=== PATIENT | female | born 1990 | race Caucasian/White ===

== ENCOUNTER 2019-10-30 10:37 | Inpatient (IN) | payer BC ==
[~2019-10-30] VITALS: Ht 167.6 cm; Wt 91.8 kg
[2019-10-30] MEDS ORDERED: MAGNESIUM SULF. PMX 20GM/500ML 500 ML IV SCH (12:04)
[2019-10-30] MEDS ORDERED: MAGNESIUM SULF. PMX 20GM/500ML 500 ML IV ONE ×2 (12:08→19:06)
[2019-10-30] MEDS: LACTATED RINGERS 1,000 ML IV PRN ×2 (12:19→20:30)
[2019-10-30] MEDS ORDERED: PLEASE ENTER ALLERGIES MC SCH (12:30)
[2019-10-30] MEDS ORDERED: PLEASE ENTER HEIGHT AND WEIGHT MC SCH (12:30)
[2019-10-30 12:58] LABS: BASOPHILS % (AUTO) 0 % (0-1); EOSINOPHILS # (AUTO) 0.02 x10^3/uL (0-0.4); EOSINOPHILS % (AUTO) 0 % (1-7); LYMPHOCYTES # (AUTO) 1.43 x10^3/uL (1-3.4); LYMPHOCYTES % (AUTO) 11 % (22-44); MD NO; MEAN CORPUSCULAR HEMOGLOBIN 28.8 pg (27.0-34.8); MEAN CORPUSCULAR HGB CONC 33.5 g/dL (32.4-35.8); MEAN PLATELET VOLUME 8.4 fL (7.4-10.4); MONOCYTES # (AUTO) 0.11 x10^3/uL (0.2-0.8); MONOCYTES % (AUTO) 1 % (2-9); NEUTROPHILS % (AUTO) 89 % (42-75); PLATELET COUNT 316 x10^3/uL (130-400); RED BLOOD COUNT 4.22 x10^6/uL (3.82-5.3); RED CELL DISTRIBUTION WIDTH 12.7 % (9.6-15.2)
[2019-10-30] MEDS: MAGNESIUM SULF. PMX 20GM/500ML 500 ML IV PRN ×2 (13:30→19:15)
[2019-10-30] MEDS ORDERED: MAGNESIUM SULF. PMX 20GM/500ML 500 ML IV PRN (14:00)
[2019-10-30] MEDS ORDERED: BETAMETHASONE 6 MG/ML, 5ML IM ONE (15:08)
[2019-10-30] MEDS: AZITHROMYCIN 500 MG in SODIUM CHLORIDE 0.9% 250 ML IV SCH (15:31)
[2019-10-30] MEDS ORDERED: INDOMETHACIN 50 MG CAPSULE PO SCH (16:00)
[2019-10-30] MEDS: AMPICILLIN 2 GM in SODIUM CHLORIDE 0.9% 100 ML IV SCH (18:28)
[2019-10-30 19:44] VITALS: BP 104/58
[2019-10-30] MEDS: INDOMETHACIN 50 MG CAPSULE PO SCH (21:00)
[2019-10-30] MEDS ORDERED: ONDANSETRON 2MG/ML, 2ML ONE (22:26)
[2019-10-30] MEDS ORDERED: ONDANSETRON 2MG/ML, 2ML IVPush ONE (22:30)
[2019-10-30] MEDS: MAGNESIUM SULF. PMX 20GM/500ML 500 ML IV SCH (22:54)
[2019-10-31] MEDS ORDERED: MAGNESIUM SULF. PMX 20GM/500ML 500 ML IV ONE ×3 (02:11→19:24)
[2019-10-31] MEDS: MAGNESIUM SULF. PMX 20GM/500ML 500 ML IV SCH ×3 (02:15→19:26)
[2019-10-31] MEDS: AMPICILLIN 2 GM in SODIUM CHLORIDE 0.9% 100 ML IV SCH ×4 (05:54→18:04)
[2019-10-31] MEDS ORDERED: INDOMETHACIN 25 MG CAPSULE ONE (06:02)
[2019-10-31] MEDS: INDOMETHACIN 50 MG CAPSULE PO SCH ×2 (06:10→14:00)
[2019-10-31] MEDS ORDERED: BETAMETHASONE 6 MG/ML, 5ML IM ONE (08:39)
[2019-10-31] MEDS ORDERED: PRENATAL VIT/IRON/FA 1 EACH TABLET ONE (08:39)
[2019-10-31] MEDS: PRENATAL VIT/IRON/FA 1 EACH TABLET PO SCH (08:49)
[2019-10-31] MEDS ORDERED: INDOMETHACIN 50 MG CAPSULE ONE (13:55)
[2019-10-31] MEDS: AZITHROMYCIN 500 MG in SODIUM CHLORIDE 0.9% 250 ML IV SCH (14:33)
[2019-10-31] MEDS: LACTATED RINGERS 1,000 ML IV PRN (17:29)
[2019-11-01] MEDS: AMPICILLIN 2 GM in SODIUM CHLORIDE 0.9% 100 ML IV SCH ×4 (00:05→18:17)
[2019-11-01] MEDS ORDERED: MAGNESIUM SULF. PMX 20GM/500ML 500 ML IV ONE ×2 (04:37→20:11)
[2019-11-01] MEDS: MAGNESIUM SULF. PMX 20GM/500ML 500 ML IV SCH ×2 (04:40→21:09)
[2019-11-01] MEDS: LACTATED RINGERS 1,000 ML IV PRN ×2 (06:08→20:25)
[2019-11-01] MEDS ORDERED: PRENATAL VIT/IRON/FA 1 EACH TABLET ONE (08:12)
[2019-11-01] MEDS ORDERED: DOCUSATE 100 MG CAPSULE ONE (08:13)
[2019-11-01] MEDS: DOCUSATE 100 MG CAPSULE PO SCH ×2 (08:14→21:56)
[2019-11-01] MEDS: PRENATAL VIT/IRON/FA 1 EACH TABLET PO SCH (08:14)
[2019-11-01] MEDS: LACTOBACILLUS 1GM/ PACKET PO PRN (10:12)
[2019-11-01] MEDS ORDERED: NEWBORN KIT ONE (12:27)
[2019-11-01] MEDS ORDERED: METOCLOPRAMIDE 5 MG/ML, 2ML ONE (12:27)
[2019-11-01] MEDS ORDERED: SODIUM CITRATE/CITRIC ACID 30 ML UDC ONE (12:28)
[2019-11-01] MEDS: AZITHROMYCIN 500 MG in SODIUM CHLORIDE 0.9% 250 ML IV SCH (14:21)
[2019-11-01] MEDS ORDERED: MAGNESIUM SULFATE PMX 2GM/50ML 50 ML ONE (20:11)
[2019-11-01] MEDS ORDERED: MAGNESIUM SULFATE PMX 4GM/100M 100 ML ONE (20:11)
[2019-11-01] MEDS ORDERED: MAGNESIUM SULFATE PMX 4GM/100M 100 ML IVPB ONE (20:30)
[2019-11-01] MEDS ORDERED: MAGNESIUM SULFATE PMX 2GM/50ML 50 ML IVPB ONE (20:30)
[2019-11-02] MEDS: AMPICILLIN 2 GM in SODIUM CHLORIDE 0.9% 100 ML IV SCH ×4 (00:17→18:05)
[2019-11-02] MEDS ORDERED: MAGNESIUM SULF. PMX 20GM/500ML 500 ML IV ONE (07:21)
[2019-11-02] MEDS: MAGNESIUM SULF. PMX 20GM/500ML 500 ML IV SCH (07:40)
[2019-11-02] MEDS ORDERED: DOCUSATE 100 MG CAPSULE ONE ×2 (08:07→20:58)
[2019-11-02] MEDS ORDERED: PRENATAL VIT/IRON/FA 1 EACH TABLET ONE (08:07)
[2019-11-02] MEDS: PRENATAL VIT/IRON/FA 1 EACH TABLET PO SCH (08:57)
[2019-11-02] MEDS: DOCUSATE 100 MG CAPSULE PO SCH ×2 (08:57→21:00)
[2019-11-02] MEDS: LACTATED RINGERS 1,000 ML IV PRN (09:11)
[2019-11-02] MEDS: AZITHROMYCIN 500 MG in SODIUM CHLORIDE 0.9% 250 ML IV SCH (14:20)
[2019-11-02] MEDS ORDERED: CALCIUM CARBONATE 500 MG TAB.CHEW ONE (15:14)
[2019-11-02 20:10] VITALS: BP 102/56
[2019-11-02] MEDS ORDERED: AMOXICILLIN 250 MG CAPSULE ONE (20:58)
[2019-11-02] MEDS: AMOXICILLIN 250 MG CAPSULE PO SCH (21:00)
[2019-11-03 01:00] VITALS: BP 105/51
[2019-11-03] MEDS ORDERED: AMOXICILLIN 250 MG CAPSULE ONE ×2 (05:26→21:25)
[2019-11-03] MEDS: AMOXICILLIN 250 MG CAPSULE PO SCH ×2 (06:05→21:27)
[2019-11-03 06:06] VITALS: BP 106/58
[2019-11-03 07:50] VITALS: BP 109/60
[2019-11-03] MEDS ORDERED: DOCUSATE 100 MG CAPSULE ONE (08:56)
[2019-11-03] MEDS ORDERED: PRENATAL VIT/IRON/FA 1 EACH TABLET ONE (08:56)
[2019-11-03] MEDS ORDERED: AZITHROMYCIN 500 MG TABLET ONE (08:56)
[2019-11-03] MEDS: PRENATAL VIT/IRON/FA 1 EACH TABLET PO SCH (08:58)
[2019-11-03] MEDS: AZITHROMYCIN 500 MG TABLET PO SCH (08:59)
[2019-11-03] MEDS: DOCUSATE 100 MG CAPSULE PO SCH ×2 (08:59→21:00)
[2019-11-03 21:56] VITALS: BP 112/56
[2019-11-04] MEDS ORDERED: AMOXICILLIN 250 MG CAPSULE ONE (05:49)
[2019-11-04] MEDS: SODIUM CHLORIDE FLUSH 10ML SYR IVF PRN ×2 (05:56→20:47)
[2019-11-04] MEDS: AMOXICILLIN 250 MG CAPSULE PO SCH ×4 (05:56→20:46)
[2019-11-04 06:11] LABS: BASOPHILS # (AUTO) 0.03 x10^3/uL (0-0.1); BASOPHILS % (AUTO) 0 % (0-1); EOSINOPHILS % (AUTO) 3 % (1-7); LYMPHOCYTES # (AUTO) 3.11 x10^3/uL (1-3.4); LYMPHOCYTES % (AUTO) 26 % (22-44); MD NO; MEAN CORPUSCULAR HEMOGLOBIN 29.1 pg (27.0-34.8); MEAN CORPUSCULAR HGB CONC 33.4 g/dL (32.4-35.8); MEAN CORPUSCULAR VOLUME 87.1 fL (80-100); MEAN PLATELET VOLUME 8.1 fL (7.4-10.4); MONOCYTES # (AUTO) 0.77 x10^3/uL (0.2-0.8); MONOCYTES % (AUTO) 6 % (2-9); NEUTROPHILS # (AUTO) 7.69 x10^3/uL (1.8-6.8); NEUTROPHILS % (AUTO) 65 % (42-75); PLATELET COUNT 294 x10^3/uL (130-400); RED BLOOD COUNT 3.65 x10^6/uL (3.82-5.3); RED CELL DISTRIBUTION WIDTH 12.7 % (9.6-15.2)
[2019-11-04 09:00] VITALS: BP 110/65
[2019-11-04] MEDS: DOCUSATE 100 MG CAPSULE PO SCH ×2 (09:00→20:46)
[2019-11-04] MEDS ORDERED: PRENATAL VIT/IRON/FA 1 EACH TABLET ONE (10:41)
[2019-11-04] MEDS: PRENATAL VIT/IRON/FA 1 EACH TABLET PO SCH (10:43)
[2019-11-04] MEDS: AZITHROMYCIN 500 MG TABLET PO SCH (10:44)
[2019-11-04] MEDS ORDERED: DOCUSATE 100 MG CAPSULE ONE (20:44)
[2019-11-04] MEDS: MICONAZOLE 7 VAG. CRM 2%, 45GM VG SCH (20:47)
[2019-11-04] MEDS: LACTOBACILLUS 1GM/ PACKET PO PRN (21:32)
[2019-11-05] MEDS: DOCUSATE 100 MG CAPSULE PO SCH (08:06)
[2019-11-05] MEDS ORDERED: AZITHROMYCIN 500 MG TABLET ONE (08:42)
[2019-11-05] MEDS ORDERED: AMOXICILLIN 250 MG CAPSULE ONE ×3 (08:42→20:38)
[2019-11-05] MEDS ORDERED: PRENATAL VIT/IRON/FA 1 EACH TABLET ONE (08:54)
[2019-11-05] MEDS: AZITHROMYCIN 500 MG TABLET PO SCH (08:55)
[2019-11-05] MEDS: PRENATAL VIT/IRON/FA 1 EACH TABLET PO SCH (08:56)
[2019-11-05] MEDS: AMOXICILLIN 250 MG CAPSULE PO SCH ×3 (08:56→21:01)
[2019-11-05] MEDS: SODIUM CHLORIDE FLUSH 10ML SYR IVF PRN ×2 (08:57→21:00)
[2019-11-05] MEDS ORDERED: ONDANSETRON 2MG/ML, 2ML ONE (09:42)
[2019-11-05] MEDS ORDERED: ONDANSETRON 2MG/ML, 2ML IVPush PRN (10:00)
[2019-11-05] MEDS: LACTOBACILLUS 1GM/ PACKET PO PRN ×2 (16:31→21:01)
[2019-11-05 20:08] VITALS: BP 112/63
[2019-11-05] MEDS: MICONAZOLE 7 VAG. CRM 2%, 45GM VG SCH (21:01)
[2019-11-06] MEDS ORDERED: AMOXICILLIN 250 MG CAPSULE ONE ×3 (04:57→20:55)
[2019-11-06] MEDS: SODIUM CHLORIDE FLUSH 10ML SYR IVF PRN ×3 (05:01→20:58)
[2019-11-06] MEDS: AMOXICILLIN 250 MG CAPSULE PO SCH ×2 (05:01→20:57)
[2019-11-06] MEDS: DOCUSATE 100 MG CAPSULE PO SCH ×3 (09:00→21:00)
[2019-11-06] MEDS ORDERED: PRENATAL VIT/IRON/FA 1 EACH TABLET ONE (09:32)
[2019-11-06] MEDS ORDERED: AZITHROMYCIN 500 MG TABLET ONE (09:44)
[2019-11-06] MEDS: PRENATAL VIT/IRON/FA 1 EACH TABLET PO SCH (09:47)
[2019-11-06] MEDS: AZITHROMYCIN 500 MG TABLET PO SCH (09:47)
[2019-11-06 20:51] VITALS: BP 110/59
[2019-11-06] MEDS: MICONAZOLE 7 VAG. CRM 2%, 45GM VG SCH (21:00)
[2019-11-06] MEDS: LACTOBACILLUS 1GM/ PACKET PO PRN (21:10)
[2019-11-07] MEDS ORDERED: AMOXICILLIN 250 MG CAPSULE ONE ×4 (05:27→20:36)
[2019-11-07] MEDS: AMOXICILLIN 250 MG CAPSULE PO SCH ×4 (05:30→21:09)
[2019-11-07] MEDS: SODIUM CHLORIDE FLUSH 10ML SYR IVF PRN ×3 (05:30→21:00)
[2019-11-07] MEDS ORDERED: PRENATAL VIT/IRON/FA 1 EACH TABLET ONE (08:43)
[2019-11-07] MEDS ORDERED: DOCUSATE 100 MG CAPSULE ONE (08:43)
[2019-11-07] MEDS: PRENATAL VIT/IRON/FA 1 EACH TABLET PO SCH (08:46)
[2019-11-07] MEDS: DOCUSATE 100 MG CAPSULE PO SCH ×2 (08:46→08:47)
[2019-11-07] MEDS ORDERED: AZITHROMYCIN 500 MG TABLET ONE (12:20)
[2019-11-07] MEDS: AZITHROMYCIN 500 MG TABLET PO SCH (12:23)
[2019-11-07] MEDS: MICONAZOLE 7 VAG. CRM 2%, 45GM VG SCH (21:00)
[2019-11-07] MEDS: LACTOBACILLUS 1GM/ PACKET PO PRN (21:09)
[2019-11-08 08:45] VITALS: BP 120/79
[2019-11-08] MEDS ORDERED: AMOXICILLIN 250 MG CAPSULE ONE (09:36)
[2019-11-08] MEDS ORDERED: PRENATAL VIT/IRON/FA 1 EACH TABLET ONE (09:36)
[2019-11-08] MEDS: PRENATAL VIT/IRON/FA 1 EACH TABLET PO SCH (09:38)
[2019-11-08] MEDS: SODIUM CHLORIDE FLUSH 10ML SYR IVF PRN ×2 (19:59→20:15)
[2019-11-08] MEDS: DOCUSATE 100 MG CAPSULE PO SCH (20:56)
[2019-11-09] MEDS ORDERED: MAGNESIUM SULF. PMX 20GM/500ML 500 ML IV ONE (10:21)
[2019-11-09] MEDS ORDERED: LACTATED RINGERS 1,000 ML IV PRN (10:28)
[2019-11-09] MEDS ORDERED: MAGNESIUM SULF. PMX 20GM/500ML 500 ML IV SCH (10:28)
[2019-11-09] MEDS ORDERED: MAGNESIUM SULFATE PMX 2GM/50ML 50 ML IVPB ONE (10:30)
[2019-11-09] MEDS ORDERED: MAGNESIUM SULFATE PMX 4GM/100M 100 ML IVPB ONE (10:30)
[2019-11-09] MEDS ORDERED: CALCIUM GLUCONATE 4.6 MEQ/10 ML IV PRN (10:30)
[2019-11-09] MEDS: LACTATED RINGERS 1,000 ML IV PRN (10:40)
[2019-11-09 11:45] LABS: BASOPHILS # (AUTO) 0.05 x10^3/uL (0-0.1); BASOPHILS % (AUTO) 0 % (0-1); EOSINOPHILS # (AUTO) 0.26 x10^3/uL (0-0.4); EOSINOPHILS % (AUTO) 2 % (1-7); LYMPHOCYTES # (AUTO) 2.78 x10^3/uL (1-3.4); LYMPHOCYTES % (AUTO) 22 % (22-44); MD NO; MEAN CORPUSCULAR HEMOGLOBIN 28.6 pg (27.0-34.8); MEAN CORPUSCULAR HGB CONC 32.7 g/dL (32.4-35.8); MEAN CORPUSCULAR VOLUME 87.4 fL (80-100); MEAN PLATELET VOLUME 8.7 fL (7.4-10.4); MONOCYTES # (AUTO) 0.95 x10^3/uL (0.2-0.8); MONOCYTES % (AUTO) 8 % (2-9); NEUTROPHILS # (AUTO) 8.56 x10^3/uL (1.8-6.8); NEUTROPHILS % (AUTO) 68 % (42-75); PLATELET COUNT 296 x10^3/uL (130-400); RED CELL DISTRIBUTION WIDTH 13.5 % (9.6-15.2)
[2019-11-09] MEDS ORDERED: METOPROLOL 1 MG/ML, 5ML IV PRN (19:00)
[2019-11-09] MEDS ORDERED: HYDROcodone/APAP 7.5-325MG/15ML UDC PO PRN (19:00)
[2019-11-09] MEDS ORDERED: MEPERIDINE/PF 25MG/0.5ML IVPush PRN (19:00)
[2019-11-09] MEDS ORDERED: hydrALAzine 20 MG/ML, 1ML IV PRN (19:00)
[2019-11-09] MEDS ORDERED: FENTANYL PF 100 MCG/2ML IV PRN (19:00)
[2019-11-09] MEDS ORDERED: LABETALOL 5MG/ML, 20ML IV PRN (19:00)
[2019-11-09] MEDS ORDERED: PROMETHAZINE 25 MG/ML, 1ML IV PRN (19:00)
[2019-11-09] MEDS ORDERED: AZITHROMYCIN 500 MG in SODIUM CHLORIDE 0.9% 250 ML IV ONE (19:00)
[2019-11-09] MEDS ORDERED: HYDROmorphone 2 MG/ML, 1ML IVPush PRN (19:00)
[2019-11-09] MEDS ORDERED: CEFAZOLIN PMX 1GM/50ML 50 ML IVPB ONE (19:00)
[2019-11-09] MEDS ORDERED: MIDAZOLAM 1 MG/ML, 2ML IV PRN (19:00)
[2019-11-09] MEDS ORDERED: ONDANSETRON 2MG/ML, 2ML IVPush PRN (19:00)
[2019-11-09] MEDS ORDERED: OXYcodone 5 MG/5 ML ORAL.SOL UDC PO PRN (19:00)
[2019-11-09] MEDS ORDERED: EPHEDRINE 50 MG/ML, 1ML IVPush PRN (19:00)
[2019-11-09] MEDS ORDERED: SODIUM CITRATE/CITRIC ACID 30 ML UDC PO ONE (19:00)
[2019-11-09] MEDS ORDERED: LACTATED RINGERS 1,000 ML IVBOLUS ONE (19:00)
[2019-11-09] MEDS ORDERED: OXYTOCIN 30U/ 0.9% NaCL 500ML 500 ML ONE (19:02)
[2019-11-09] MEDS ORDERED: PHENYLEPHRINE 10 MG/ML ONE (19:11)
[2019-11-09] MEDS ORDERED: OXYTOCIN 10 UNITS/ML, 1ML ONE (19:11)
[2019-11-09] MEDS ORDERED: CEFAZOLIN 1,000 MG ONE (19:11)
[2019-11-09] MEDS ORDERED: EPHEDRINE 50 MG/ML, 1ML ONE (19:11)
[2019-11-09] MEDS ORDERED: DEXAMETHASONE 4 MG/ML, 1ML ONE (19:11)
[2019-11-09] MEDS ORDERED: KETOROLAC 30 MG/1 ML ONE (19:11)
[2019-11-09] MEDS ORDERED: ONDANSETRON 2MG/ML, 2ML ONE (19:11)
[2019-11-09] MEDS ORDERED: FENTANYL PF 100 MCG/2ML ONE ×2 (19:11→22:31)
[2019-11-09] MEDS ORDERED: HYDROmorphone 2 MG/ML, 1ML ONE (20:06)
[2019-11-09] MEDS ORDERED: OXYTOCIN 30U/ 0.9% NaCL 500ML 500 ML IV SCH (20:53)
[2019-11-09] MEDS ORDERED: LACTATED RINGERS 1,000 ML IV SCH (20:53)
[2019-11-09] MEDS ORDERED: ONDANSETRON 2MG/ML, 2ML IV PRN (21:00)
[2019-11-09] MEDS ORDERED: SIMETHICONE 80 MG CHEW TAB PO PRN (21:00)
[2019-11-09] MEDS ORDERED: MISOPROSTOL 200 MCG TABLET PR PRN (21:00)
[2019-11-09] MEDS ORDERED: BISACODYL 10 MG SUPP PR PRN (21:00)
[2019-11-09] MEDS ORDERED: CARBOPROST TROMETHAMINE 250 MCG/ML, 1ML IM PRN (21:00)
[2019-11-09] MEDS ORDERED: METHYLERGONOVINE 0.2 MG/ML IM PRN (21:00)
[2019-11-09] MEDS ORDERED: DOCUSATE 100 MG CAPSULE PO PRN (21:00)
[2019-11-09] MEDS ORDERED: OXYcodone 5 MG/5 ML ORAL.SOL UDC ONE (21:23)
[2019-11-09 22:30] VITALS: BP 101/62
[2019-11-09] MEDS: DOCUSATE 100 MG CAPSULE PO SCH ×3 (23:25→23:33)
[2019-11-09] MEDS: PRENATAL VIT/IRON/FA 1 EACH TABLET PO SCH (23:25)
[2019-11-09] MEDS: LACTATED RINGERS 1,000 ML IV SCH (23:32)
[2019-11-10 01:20] VITALS: BP 103/61
[2019-11-10] MEDS: OXYcodone/APAP 5/325MG TABLET PO PRN ×2 (01:28→08:51)
[2019-11-10] MEDS: KETOROLAC 30 MG/1 ML IVPush SCH ×3 (02:10→14:30)
[2019-11-10 04:53] LABS: BASOPHILS # (AUTO) 0.03 x10^3/uL (0-0.1); BASOPHILS % (AUTO) 0 % (0-1); EOSINOPHILS # (AUTO) 0.19 x10^3/uL (0-0.4); EOSINOPHILS % (AUTO) 1 % (1-7); LYMPHOCYTES # (AUTO) 1.42 x10^3/uL (1-3.4); LYMPHOCYTES % (AUTO) 10 % (22-44); MD NO; MEAN CORPUSCULAR HEMOGLOBIN 28.9 pg (27.0-34.8); MEAN CORPUSCULAR HGB CONC 32.9 g/dL (32.4-35.8); MEAN CORPUSCULAR VOLUME 87.8 fL (80-100); MEAN PLATELET VOLUME 9.1 fL (7.4-10.4); MONOCYTES # (AUTO) 0.38 x10^3/uL (0.2-0.8); MONOCYTES % (AUTO) 3 % (2-9); NEUTROPHILS # (AUTO) 11.94 x10^3/uL (1.8-6.8); NEUTROPHILS % (AUTO) 86 % (42-75); PLATELET COUNT 265 x10^3/uL (130-400); RED BLOOD COUNT 3.51 x10^6/uL (3.82-5.3); RED CELL DISTRIBUTION WIDTH 13.1 % (9.6-15.2)
[2019-11-10] MEDS: LACTATED RINGERS 1,000 ML IV SCH (04:53)
[2019-11-10] MEDS: ACETAMINOPHEN 325 MG TABLET PO PRN ×2 (05:01→23:02)
[2019-11-10] MEDS: OXYcodone IR 5MG TABLET PO PRN ×4 (05:01→23:02)
[2019-11-10 05:02] VITALS: BP 99/61
[2019-11-10 07:30] VITALS: BP 104/62
[2019-11-10] MEDS: DOCUSATE 100 MG CAPSULE PO SCH ×2 (08:51→23:02)
[2019-11-10] MEDS: PRENATAL VIT/IRON/FA 1 EACH TABLET PO SCH ×2 (08:51→09:00)
[2019-11-10 12:00] VITALS: BP 95/62
[2019-11-10] MEDS: IBUPROFEN 600 MG TABLET PO PRN ×2 (14:05→18:56)
[2019-11-10 22:00] VITALS: BP 110/71
[2019-11-11] MEDS: IBUPROFEN 600 MG TABLET PO PRN ×4 (01:06→21:33)
[2019-11-11] MEDS: ACETAMINOPHEN 325 MG TABLET PO PRN ×2 (04:43→09:31)
[2019-11-11] MEDS: OXYcodone IR 5MG TABLET PO PRN ×2 (04:43→09:32)
[2019-11-11 08:00] VITALS: BP 102/69
[2019-11-11] MEDS: DOCUSATE 100 MG CAPSULE PO SCH ×2 (08:08→21:33)
[2019-11-11] MEDS: PRENATAL VIT/IRON/FA 1 EACH TABLET PO SCH ×2 (08:08→09:00)
[2019-11-11] MEDS: OXYcodone/APAP 5/325MG TABLET PO PRN ×3 (13:37→21:33)
[2019-11-11 19:30] VITALS: BP 103/69
[2019-11-12] MEDS: IBUPROFEN 600 MG TABLET PO PRN ×3 (03:13→18:21)
[2019-11-12] MEDS: OXYcodone/APAP 5/325MG TABLET PO PRN ×4 (03:15→16:43)
[2019-11-12 07:40] VITALS: BP 104/70
[2019-11-12] MEDS: DOCUSATE 100 MG CAPSULE PO SCH ×2 (07:43→22:10)
[2019-11-12] MEDS: PRENATAL VIT/IRON/FA 1 EACH TABLET PO SCH ×2 (07:43→09:00)
[2019-11-12 20:30] VITALS: BP 114/70
[2019-11-13] MEDS: IBUPROFEN 600 MG TABLET PO PRN ×2 (01:18→08:15)
[2019-11-13 07:33] VITALS: BP 108/68
[2019-11-13] MEDS: DOCUSATE 100 MG CAPSULE PO SCH (08:17)
[2019-11-13] MEDS: PRENATAL VIT/IRON/FA 1 EACH TABLET PO SCH (08:18)
[2019-11-13] MEDS ORDERED: OXYC-302 PO (12:03)
[2019-11-13] MEDS ORDERED: IBUP-1222 PO (12:04)
[2019-11-13] MEDS ORDERED: DOCU-131 PO (12:05)
== END 2019-11-13 13:48 | disposition home or self-care (01) | DRG 786 ==
LOC: 2NE 11:43 → 2NW 11-09 22:04
PROVIDERS: ADMIT Obstetrics & Gynecology Maternal & Fetal Medicine; ATTEND Obstetrics & Gynecology Maternal & Fetal Medicine
PROC: 10D00Z1 Extraction of Products of Conception, Low, Open Approach (ICD-10-PCS; principal; 2019-11-09)
DX: O32.2XX0 Maternal care for transverse and oblique lie, not applicable or unspecified (principal); O60.14X0 Preterm labor third trimester with preterm delivery third trimester, not applicable or unspecified; O99.354 Diseases of the nervous system complicating childbirth; O34.211 Maternal care for low transverse scar from previous cesarean delivery; O42.913 Preterm premature rupture of membranes, unspecified as to length of time between rupture and onset of labor, third trimester; G40.909 Epilepsy, unspecified, not intractable, without status epilepticus; O34.03 Maternal care for unspecified congenital malformation of uterus, third trimester; O32.9XX0 Maternal care for malpresentation of fetus, unspecified, not applicable or unspecified; O99.52 Diseases of the respiratory system complicating childbirth; J45.909 Unspecified asthma, uncomplicated; Q37.9 Unspecified cleft palate with unilateral cleft lip; Q51.3 Bicornate uterus; Z37.0 Single live birth; Z3A.30 30 weeks gestation of pregnancy
CPT/HCPCS: 36415; 82803; 83735; 85025; 86850; 86900; 88305; G0378; J0290; J0456; J0690; J0702; J1100; J1170; J1885; J2405; J3010; J2370; J2590; J3475; J7050; J7120

== ENCOUNTER 2019-12-07 06:17 | Emergency (ER) | payer BC ==
[~2019-12-07] VITALS: Ht 167.6 cm; Wt 84.6 kg
[~2019-12-07 06:17] MED LIST: DOCU-131 PO; IBUP-1222 PO; OXYC-302 PO
--- NOTE | 2019-12-07 06:42 | NUR ---
UA WALKED TO LAB
--- NOTE | 2019-12-07 06:42 | NUR ---
PT TO ED FOR UMBILICAL PAIN, ONSET LAST NIGHT AT 2200. DENIES N/V/D OR FEVER. PT DENIES ANY URINARY S/S. PT IS S/P C SECTION 11/09/19. PT TEARFUL, DENIES TAKING ANY MEDS LEARNING SUPPORT SPECIALIST. PT STATES SHE IS STAYING AT [facility] & DOES NOT HAVE ANYONE TO DRIVE HER IF GIVEN NARCS, PTS IS IN NICU AT [facility] (BORN AT 30 WKS). PA AT BS. PT CHANGING INTO GOWN.
--- NOTE | 2019-12-07 07:04 | NUR ---
LATE ENTRY FOR 0650 RECEIVED BEDSIDE REPORT FROM NIRAJ VICTORIA. PT RESTING ON [facility] AWAITING LAB RESULTS. NADN. NO NEEDS REQUESTED AT THIS TIME.
[2019-12-07 07:10] LABS: BASOPHILS # (AUTO) 0.03 x10^3/uL (0-0.1); BASOPHILS % (AUTO) 0 % (0-1); EOSINOPHILS # (AUTO) 0.07 x10^3/uL (0-0.4); EOSINOPHILS % (AUTO) 1 % (1-7); LYMPHOCYTES # (AUTO) 2.57 x10^3/uL (1-3.4); LYMPHOCYTES % (AUTO) 28 % (22-44); MD NO; MEAN CORPUSCULAR HEMOGLOBIN 27.7 pg (27.0-34.8); MEAN CORPUSCULAR HGB CONC 32.3 g/dL (32.4-35.8); MEAN CORPUSCULAR VOLUME 85.8 fL (80-100); MEAN PLATELET VOLUME 8.7 fL (7.4-10.4); MONOCYTES # (AUTO) 0.59 x10^3/uL (0.2-0.8); MONOCYTES % (AUTO) 6 % (2-9); NEUTROPHILS % (AUTO) 65 % (42-75); PLATELET COUNT 331 x10^3/uL (130-400); RED BLOOD COUNT 4.59 x10^6/uL (3.82-5.3); RED CELL DISTRIBUTION WIDTH 13.9 % (9.6-15.2)
[2019-12-07 07:15] LABS: MICROSCOPIC AUTO
[2019-12-07 07:16] LABS: CULTURE INDICATED? NO
[2019-12-07 07:23] LABS: ALANINE AMINOTRANSFERASE 16 U/L (12-78); ALBUMIN 3.5 g/dL (3.4-5.0); ANION GAP 7 mmol/L (5-15); CALCIUM 8.3 mg/dL (8.5-10.1); CHLORIDE 109 mmol/L (98-107); CREATININE 0.65 mg/dL (0.55-1.02)
[2019-12-07 07:28] LABS: ALKALINE PHOSPHATASE 75 U/L (45-117); BILIRUBIN,TOTAL 0.3 mg/dL (0.2-1.0); TOTAL PROTEIN 7.7 g/dL (6.4-8.2)
[2019-12-07 08:14] VITALS: BP 112/72
--- NOTE | 2019-12-07 08:14 | NUR ---
PIV ESTABLISHED. PT TOLERATED WITH NO COMPLICATIONS. PT NOW PLAYING ON CELL PHONE. PT VERBALIZES UNDERSTANDING POC. AWAITING IMAGING. NO NEEDS REQUESTED AT THIS TIME.
--- NOTE | 2019-12-07 08:48 | NUR ---
PT TO IMAGING.
[2019-12-07] MEDS ORDERED: OMNIPAQUE 350 MG/ML, 100ML BOTTLE ONE (09:27)
--- NOTE | 2019-12-07 09:32 | NUR ---
PT BACK FROM IMAGING. ROSE. PT RESTING ON Tempr[employer]ics. NO NEEDS REQUESTED AT THIS TIME
--- NOTE | 2019-12-07 10:30 | NUR ---
Patient/Caregiver given discharge instructions and they have confirmed that they understand the instructions. Patient ambulatory with steady gait. PIV DISCONTINUED WITH TIP INTACT. PRESSURE DRESSING APPLIED. PT LEFT WITH ALL PERSONAL BELONGINGS.
== END 2019-12-07 10:33 | disposition home or self-care (01) ==
LOC: ED 10:27
DX: N39.0 Urinary tract infection, site not specified (principal); G40.909 Epilepsy, unspecified, not intractable, without status epilepticus; Z90.49 Acquired absence of other specified parts of digestive tract
CPT/HCPCS: 36415; 74177; 80053; 81001; 83690; 84703; 85025; 99284; Q9967

== ENCOUNTER 2019-12-11 18:54 | Emergency (ER) | payer BC ==
[~2019-12-11] VITALS: Ht 167.6 cm; Wt 85.1 kg
--- NOTE | 2019-12-11 19:39 | NUR ---
Pt ambulatory to room. Pt reports being dx'd with UTI last week. Pt denies urinary symptoms but reports LUQ pain. Pt report she had a 1 mnth ago and the sensation of the urinary catheter hasn't gone away. Pt denies vomiting, fevers, abnormal discharge. Pt is tender to touch over epigastric region. Pt ambulatory to restroom for urine sample. Addendum: 12/11/19 at 1941 by YANELISCH RUQ* pain
--- NOTE | 2019-12-11 19:48 | NUR ---
Urine collected and sent.
--- NOTE | 2019-12-11 20:02 | NUR ---
Xray and lab at bedside.
[2019-12-11 20:14] LABS: BASOPHILS # (AUTO) 0.02 x10^3/uL (0-0.1); BASOPHILS % (AUTO) 0 % (0-1); EOSINOPHILS # (AUTO) 0.18 x10^3/uL (0-0.4); EOSINOPHILS % (AUTO) 2 % (1-7); LYMPHOCYTES # (AUTO) 3.11 x10^3/uL (1-3.4); LYMPHOCYTES % (AUTO) 34 % (22-44); MD NO; MEAN CORPUSCULAR HEMOGLOBIN 27.8 pg (27.0-34.8); MEAN CORPUSCULAR HGB CONC 32.6 g/dL (32.4-35.8); MEAN CORPUSCULAR VOLUME 85.1 fL (80-100); MEAN PLATELET VOLUME 8.2 fL (7.4-10.4); MONOCYTES # (AUTO) 0.52 x10^3/uL (0.2-0.8); MONOCYTES % (AUTO) 6 % (2-9); NEUTROPHILS # (AUTO) 5.31 x10^3/uL (1.8-6.8); NEUTROPHILS % (AUTO) 58 % (42-75); PLATELET COUNT 388 x10^3/uL (130-400); RED BLOOD COUNT 4.56 x10^6/uL (3.82-5.3); RED CELL DISTRIBUTION WIDTH 13.5 % (9.6-15.2)
[2019-12-11 20:23] LABS: ALANINE AMINOTRANSFERASE 17 U/L (12-78); ALBUMIN 3.4 g/dL (3.4-5.0); ANION GAP 6 mmol/L (5-15); CALCIUM 8.9 mg/dL (8.5-10.1); CHLORIDE 108 mmol/L (98-107); CREATININE 0.67 mg/dL (0.55-1.02)
[2019-12-11 20:25] LABS: ALKALINE PHOSPHATASE 73 U/L (45-117); BILIRUBIN,TOTAL 0.2 mg/dL (0.2-1.0); TOTAL PROTEIN 7.8 g/dL (6.4-8.2)
[2019-12-11 20:27] LABS: MICROSCOPIC AUTO
[2019-12-11 20:45] LABS: CULTURE INDICATED? YES
[2019-12-11 21:05] VITALS: BP 101/52
--- NOTE | 2019-12-11 21:06 | NUR ---
Pt alert and resting on gurney. NAD. VS retaken. Breastpump requested from PP per pt request.
--- NOTE | 2019-12-11 21:36 | NUR ---
Pt dc'd to home care. Pt alert in NAD. Pt pumping at time of d/c. Pt educated on follow-up, home care, prescriptions and S/Sx to return. Pt VU. Pt ambulated out of ER.
== END 2019-12-11 21:42 | disposition home or self-care (01) ==
LOC: ED 21:30
DX: R10.13 Epigastric pain (principal); G40.909 Epilepsy, unspecified, not intractable, without status epilepticus; Z90.49 Acquired absence of other specified parts of digestive tract
CPT/HCPCS: 36415; 71045; 80053; 81001; 83690; 85025; 87086; 99284